=== PATIENT | female | born 1995 | race Two or more races ===

== ENCOUNTER 2020-05-06 00:05 | Emergency (ER) | payer BC, OTHER ==
[~2020-05-06] VITALS: Ht 170.2 cm; Wt 84.8 kg
[2020-05-06 06:11] LABS: Urine Bacteria NONE SEEN /hpf (None Seen); Urine Blood 3+ /uL (Negative); Urine Hyaline Cast FEW /lpf (0 - 2); Urine Mucus FEW (None Seen); Urine Specific Gravity 1.022 (1.001-1.035); Urine WBC 20 /hpf (0 - 5)
[2020-05-06 06:13] VITALS: BP 122/83
[2020-05-06] MEDS ORDERED: cefTRIAXone SOD 1,000 MG VL IM ONE (08:45)
== END 2020-05-06 09:44 | disposition home or self-care (01) ==
LOC: ER 00:05
DX: N13.4 Hydroureter (principal); N39.0 Urinary tract infection, site not specified
CPT/HCPCS: 51701; 74176; 81001; 81025; 96372; 99284; J0696; 51702